=== PATIENT | female | born 1960 | race Two or more races ===

== ENCOUNTER 2019-02-05 18:21 | Emergency (ER) | payer BC, OTHER ==
[~2019-02-05] VITALS: Ht 154.9 cm; Wt 72.6 kg
[2019-02-05 19:18] LABS: Basophils # (auto) 0.1 uL; Basophils % (auto) 1.2 % (0.0-2.0); Eosinophils # (auto) 0.1 uL; Eosinophils % (auto) 1.6 % (0.0-7.0); Hematocrit 41.7 % (36.0-46.0); Hemoglobin 13.8 g/dL (12.2-16.2); Lymphocytes # (auto) 2.6 uL; Lymphocytes % (auto) 38.4 % (10.0-50.0); Mean Corpuscular Hemoglobin 30.9 pg (28.0-32.0); Mean Corpuscular Volume 93.5 fL (80.0-100.0); Monocytes # (auto) 0.5 uL; Monocytes % (auto) 7.8 % (0.0-12.0); Neutrophils # (auto) 3.5 uL; Platelet Count (auto) 290 10^3/uL (140-450); Red Blood Cells 4.46 10^6/uL (4.0-5.20); Red Cell Distribution Width 14.7 % (11.8-14.3); White Blood Cell 6.9 10^3/uL (4.4-10.8)
[2019-02-05 19:29] LABS: Urine Bacteria NONE SEEN /hpf (None Seen); Urine Blood Negative /uL (Negative); Urine Specific Gravity 1.009 (1.001-1.035); Urine WBC 9 /hpf (0 - 5)
[2019-02-05 19:31] LABS: Albumin 4.4 g/dL (3.4-5.0); Calcium 9.1 mg/dL (8.5-10.1); Potassium 3.8 mmol/L (3.5-5.1)
[2019-02-05 19:34] LABS: BUN/Creatinine Ratio 22.5; Bilirubin, Total 0.4 mg/dL (0.2-1.0); Total Protein 7.7 g/dL (6.4-8.2)
[2019-02-05] MEDS ORDERED: KETOROLAC TROMETH 15 mg/ml 1ML VL IV ONE (20:45)
[2019-02-05 22:05] VITALS: BP 100/56
[2019-02-05] MEDS ORDERED: HYDROcodone-ACET 7.5/325MG TAB PO ONE (22:15)
== END 2019-02-05 22:30 | disposition home or self-care (01) ==
LOC: ER 18:21
DX: S39.012A Strain of muscle, fascia and tendon of lower back, initial encounter (principal); Z90.49 Acquired absence of other specified parts of digestive tract; Z90.710 Acquired absence of both cervix and uterus; Z90.89 Acquired absence of other organs; Z88.6 Allergy status to analgesic agent; X58.XXXA Exposure to other specified factors, initial encounter; Y93.89 Activity, other specified; Y99.8 Other external cause status; Y92.89 Other specified places as the place of occurrence of the external cause
CPT/HCPCS: 36415; 74176; 80053; 81001; 82150; 83690; 85025; 93005; 96374; 99284; J1885

== ENCOUNTER 2020-06-08 16:16 | Emergency (ER) | payer OTHER, BC ==
[~2020-06-08] VITALS: Ht 154.9 cm; Wt 64.4 kg
[2020-06-08 16:45] VITALS: BP 89/72
[2020-06-08] MEDS ORDERED: ONDANSETRON ODT 4 MG TAB PO ONE (21:00)
[2020-06-08] MEDS ORDERED: KETOROLAC TROMETH 60MG/2ML VIAL IM ONE (22:30)
[2020-06-08] MEDS ORDERED: methylPREDNISolone SOD SUCC 125 MG/2 ML VL IM ONE (22:30)
== END 2020-06-08 22:56 | disposition home or self-care (01) ==
LOC: ER 16:16
DX: M50.30 Other cervical disc degeneration, unspecified cervical region (principal); M54.16 Radiculopathy, lumbar region; G89.29 Other chronic pain
CPT/HCPCS: 72125; 74176; 96372; 99285; J1885; J2930; Q0162

== ENCOUNTER 2024-03-26 07:32 | Emergency (ER) | payer OTHER ==
[~2024-03-26] VITALS: Ht 154.9 cm; Wt 69.6 kg
[2024-03-26 07:53] VITALS: BP 130/52; PULSE 69; RESP 18; TEMP 98.3; O2SAT 99
[2024-03-26] MEDS: KETOROLAC TROMETH 30 MG/ML 1ML VIAL IM ONE (08:27)
[2024-03-26] MEDS ORDERED: MELO15TA29 PO (08:29)
== END 2024-03-26 08:30 | disposition home or self-care (01) ==
LOC: ER 07:32
DX: G89.29 Other chronic pain (principal); M25.512 Pain in left shoulder; Z88.6 Allergy status to analgesic agent; Z90.49 Acquired absence of other specified parts of digestive tract; Z90.710 Acquired absence of both cervix and uterus
CPT/HCPCS: 96372; 99283; J1885